=== PATIENT | female | born 1980 | race Caucasian/White ===

== ENCOUNTER 2017-01-25 04:19 | Observation (INO) | payer OTHER ==
[~2017-01-25] VITALS: Ht 167.6 cm; Wt 65.8 kg
[~2017-01-25 04:19] MED LIST: FOLI1TAB15 PO; IBUP-2071 PO; LEVO125 PO; PREN1TAB80 PO
[2017-01-25 04:39] VITALS: BP 101/71
[2017-01-25] MEDS ORDERED: NIFEdipine 10 MG CAPSULE PO ONE (05:15)
[2017-01-25] MEDS ORDERED: DEXTROSE 5%-LACTATED RINGERS 1,000 ML IV ONE (05:15)
[2017-01-25] MEDS ORDERED: LEVOTHYROXINE SODIUM 125 MCG TABLET PO SCH (06:30)
== END 2017-01-25 08:05 | disposition home or self-care (01) ==
LOC: 4S 04:19
PROVIDERS: ADMIT Obstetrics & Gynecology; ATTEND Obstetrics & Gynecology
DX: O62.9 Abnormality of forces of labor, unspecified (principal); O09.523 Supervision of elderly multigravida, third trimester; O99.283 Endocrine, nutritional and metabolic diseases complicating pregnancy, third trimester; E03.9 Hypothyroidism, unspecified; Z3A.38 38 weeks gestation of pregnancy
CPT/HCPCS: 59025; G0378

== ENCOUNTER 2017-01-28 11:43 | Inpatient (IN) | payer OTHER ==
[~2017-01-28] VITALS: Ht 170 cm; Wt 65.8 kg
[~2017-01-28 11:43] MED LIST changes: +DEXAMETHASONE SOD PHOS 4 MG/ML VIAL IVP ONE; +ONDANSETRON HCL 4 MG/2 ML VIAL IVP ONE; +OXYTOCIN 10 UNITS/ML VIAL IM ONE
[2017-01-28] MEDS ORDERED: RINGERS SOLUTION,LACTATED 1,000 ML IV ONE ×2 (12:24→12:28)
[2017-01-28] MEDS ORDERED: MIDAZOLAM HCL 2 MG/2 ML VIAL ONE (12:28)
[2017-01-28] MEDS ORDERED: MORPHINE SULFATE/PF 0.5 MG/ML 10 ML AMP ONE (12:28)
[2017-01-28] MEDS ORDERED: LEVO125 PO (12:28)
[2017-01-28] MEDS ORDERED: PREN1TAB80 PO (12:28)
[2017-01-28] MEDS ORDERED: METOCLOPRAMIDE HCL 5 MG/ML 2 ML VIAL IVP ONE (12:30)
[2017-01-28] MEDS ORDERED: CITRIC ACID/SODIUM CITRATE 30 ML SOLUTION UDCUP PO ONE (12:30)
[2017-01-28 12:36] VITALS: BP 117/78
[2017-01-28 12:50] LABS: BASOPHILS # (AUTO) 0.04 K/uL (0.00-0.20); BASOPHILS % (AUTO) 0.4 % (0.0-2.0); EOSINOPHILS % (AUTO) 0.03 % (1.0-6.0); LYMPHOCYTES # (AUTO) 1.5 K/uL (1.0-4.8); MEAN CORPUSCULAR HEMOGLOBIN 29.3 pg (26.0-34.0); MEAN CORPUSCULAR HGB CONC 32.4 G/dL (31.0-37.0); MEAN CORPUSCULAR VOLUME 90 fL (80-100); MONOCYTES # (AUTO) 0.6 K/uL (0.1-1.0); MONOCYTES % (AUTO) 6.3 % (2.0-9.0); NEUTROPHILS # (AUTO) 7.8 K/uL (1.8-7.7); NEUTROPHILS % (AUTO) 78.3 % (40.0-70.0); RED BLOOD CELL COUNT(AUTO) 4.09 MIL/uL (4.00-5.20); RED CELL DISTRIBUTION WIDTH 13.6 % (11.5-14.5); WHITE BLOOD COUNT (AUTO) 9.9 K/uL (4.5-11.0)
[2017-01-28] MEDS ORDERED: INFLUENZA VIRUS VACCINE QVS 2017-18 (3YR+)/PF 60 MCG/0.5 ML SYRINGE IM ONE (13:45)
[2017-01-28] MEDS ORDERED: MORPHINE SULFATE 4 MG/ML SYRINGE IVP PRN (14:45)
[2017-01-28] MEDS ORDERED: DiphenhydrAMINE HCL 50 MG/ML VIAL IVP PRN ×2 (14:45)
[2017-01-28] MEDS ORDERED: ONDANSETRON HCL 4 MG/2 ML VIAL IVP PRN ×2 (14:45)
[2017-01-28] MEDS ORDERED: FentaNYL CITRATE-PF 100 MCG/2 ML VIAL IVP PRN ×2 (14:45)
[2017-01-28] MEDS ORDERED: MORPHINE SULFATE 2 MG/ML SYRINGE IVP PRN (14:45)
[2017-01-28] MEDS ORDERED: ACETAMINOPHEN 1000 MG/ISO-OSM 100 ML IV ONE (14:58)
[2017-01-28] MEDS ORDERED: OXYTOCIN 20 UNITS/LACT RINGERS 1,000 ML IV SCH (15:20)
[2017-01-28] MEDS ORDERED: OxyCODONE HCL/ACETAMINOPHEN 5-325 MG TABLET PO PRN ×2 (15:30)
[2017-01-28] MEDS ORDERED: IBUPROFEN 600 MG TABLET PO PRN (15:30)
[2017-01-28] MEDS ORDERED: GLYCERIN/WITCH HAZEL LEAF 40 PADS JAR TP PRN (15:30)
[2017-01-28] MEDS: ACETAMINOPHEN 1000 MG/ISO-OSM 100 ML IV SCH ×2 (15:35→23:50)
[2017-01-28] MEDS ORDERED: LANOLIN 7 GM OINTMENT TP PRN (17:45)
[2017-01-28] MEDS: NALBUPHINE HCL 10 MG/ML VIAL IVP SCH (18:08)
[2017-01-28] MEDS ORDERED: OXYGEN THERAPY IH SCH ×2 (20:00)
[2017-01-29] MEDS: NALBUPHINE HCL 10 MG/ML VIAL IVP SCH ×2 (00:24→06:10)
[2017-01-29] MEDS: DEXTROSE 5%-0.45% SODIUM CHL 1,000 ML IV SCH ×2 (03:29→11:16)
[2017-01-29 06:01] LABS: BASOPHILS % (AUTO) 0.2 % (0.0-2.0); EOSINOPHILS % (AUTO) 0 % (1.0-6.0); HEMATOCRIT 32.4 % (36-46); HEMOGLOBIN 10.9 g/dL (12.0-16.0); LYMPHOCYTES # (AUTO) 1.5 K/uL (1.0-4.8); LYMPHOCYTES % (AUTO) 14.2 % (22.0-44.0); MEAN CORPUSCULAR HEMOGLOBIN 30.2 pg (26.0-34.0); MEAN CORPUSCULAR HGB CONC 33.8 G/dL (31.0-37.0); MEAN CORPUSCULAR VOLUME 89 fL (80-100); MONOCYTES # (AUTO) 0.6 K/uL (0.1-1.0); MONOCYTES % (AUTO) 6.2 % (2.0-9.0); NEUTROPHILS # (AUTO) 8.3 K/uL (1.8-7.7); NEUTROPHILS % (AUTO) 79.4 % (40.0-70.0); RED BLOOD CELL COUNT(AUTO) 3.62 MIL/uL (4.00-5.20); RED CELL DISTRIBUTION WIDTH 13.1 % (11.5-14.5); WHITE BLOOD COUNT (AUTO) 10.4 K/uL (4.5-11.0)
[2017-01-29] MEDS: ACETAMINOPHEN 1000 MG/ISO-OSM 100 ML IV SCH (07:34)
[2017-01-29] MEDS: LEVOTHYROXINE SODIUM 125 MCG TABLET PO SCH (07:35)
[2017-01-29] MEDS: MAGNESIUM HYDROXIDE SUSPENSION 30 ML UDCUP PO SCH ×2 (08:36→20:25)
[2017-01-29] MEDS: IBUPROFEN 800 MG TABLET PO SCH ×2 (14:19→20:25)
[2017-01-30] MEDS: IBUPROFEN 800 MG TABLET PO SCH ×2 (01:59→09:04)
[2017-01-30] MEDS: LEVOTHYROXINE SODIUM 125 MCG TABLET PO SCH (06:48)
[2017-01-30] MEDS: MAGNESIUM HYDROXIDE SUSPENSION 30 ML UDCUP PO SCH (09:00)
[2017-01-30] MEDS ORDERED: IBUP-2071 PO (14:22)
[2017-01-30] MEDS ORDERED: ACET-66 PO (14:25)
[2017-01-30] MEDS ORDERED: FERR-82 PO (14:32)
== END 2017-01-30 15:50 | disposition home or self-care (01) | DRG 766 ==
LOC: OBSVTOIN 11:43 → 4S 11:43
PROVIDERS: ADMIT Obstetrics & Gynecology; ATTEND Obstetrics & Gynecology
PROC: 10D00Z1 Extraction of Products of Conception, Low, Open Approach (ICD-10-PCS; principal; 2017-01-28)
PROC: 0UL70ZZ Occlusion of Bilateral Fallopian Tubes, Open Approach (ICD-10-PCS; 2017-01-28)
PROC: 3E0234Z Introduction of Serum, Toxoid and Vaccine into Muscle, Percutaneous Approach (ICD-10-PCS; 2017-01-28)
DX: O34.211 Maternal care for low transverse scar from previous cesarean delivery (principal); O09.513 Supervision of elderly primigravida, third trimester; O77.0 Labor and delivery complicated by meconium in amniotic fluid; Z3A.39 39 weeks gestation of pregnancy; Z37.0 Single live birth; Z23 Encounter for immunization
CPT/HCPCS: 86850; 86900; 86901; 87081; 88302; 90471; J0131; J0690; J1100; J2250; J2274; J2300; J2405; J2590; J2765; J7120